=== PATIENT | female | born 1970 | race Caucasian/White ===

== ENCOUNTER 2024-07-31 17:57 | Emergency (ER) | payer MEDICAID ==
[~2024-07-31] VITALS: Ht 160 cm; Wt 63.6 kg
[2024-07-31 18:08] VITALS: BP 137/82; PULSE 71; RESP 16; TEMP 98; O2SAT 98
--- NOTE | 2024-07-31 18:17 | Physician Documentation ---
History of Present Illness ~ Chief Complaint: Arm Pain Stated Complaint: R ARM PAIN Time Seen by MD: 18:40 OK to notify your PCP?: Yes Source: patient Mode of Arrival: POV Exam Limitations: no limitations HPI 53-year-old female presents with right elbow pain for the past couple of weeks. She mentions that she was carrying something heavy and then from into something with that arm and it has been painful ever since. Today she caught her right middle finger in a storage unit and when it pulled it caused increased elbow pain and some swelling in the finger. Good ROM on elbow and finger. Bruise to distal humerus. Medication Reconciliation Allergies: Coded Allergies: No Known Allergies (Unverified , 07/31/24) Review of Systems All Other Systems at this time: Reviewed and Negative Physical Exam Vital Signs: RN Vital Signs have been reviewed: Yes, Temperature: 98.0, Source: Temporal, Heart Rate: 71, Respiratory Rate: 16, BP: 137/82, Pulse Oximetry: 98, Weight: 63.640 Oxygen Flow Rate: 0 Pulse Oximetry Reflects: adequate oxygenation Physical Exam General: Alert, no apparent distress. HEENT: PERRL, EOMI, no injection, moist mucous membranes. Neck: Full range of motion. Respiratory: Lungs clear, no respiratory distress. Chest: No accessory muscle use. Cardiovascular: Regular rate and rhythm, no murmurs. Gastrointestinal: Soft, nontender, nondistended. Bowels sounds present. Extremities: Normal range of motion, no deformity. Neurologic: Oriented x4. Psychiatric: Normal mood and affect. Skin: Normal color, warm and dry. No edema, small healing bruise to distal right humerus Progress Results/Orders Reviewed/noted all lab results: Yes Results/Orders Vital Signs 07/31/24 18:08 Temp 98.0 Pulse 71 Resp 16 B/P (MAP) 137/82 Pulse Ox 98 O2 Flow Rate 0 EKG/XRAY/CT/US/VASC/MRI Bone/Soft Tissue X-Ray (Ext.) : Additional Comment Right elbow x-ray as interpreted by me; no joint effusion, no acute fracture, no soft tissue swelling, no dislocation, or foreign body. Medical Decision Making Findings 53-year-old female with right elbow pain for the past couple of weeks. She had increased pain today after her finger got stuck under door. She has full range motion in all fingers and her arm. She has a small healing bruise to the distal portion of her right humerus. Her x-ray was negative for an acute fracture or dislocation. We discussed the limitation of x-rays and if she is continuing to have symptoms that she may need further imaging or a repeat x-ray in 7-10 days as suggested by the radiologist. I offered to x-ray her fingers as the right middle finger is a little swollen, although she declined at this time. She should follow up with the primary care provider in the next 3 days and return back here for any new or worsening symptoms. She can take Tylenol and/or ibuprofen for pain relief Departure Disposition: 01 HOME / SELF CARE / HOMELESS Impression: Primary Impression: Elbow sprain Condition: Stable Discharge Instructions: Muscle Strain, [id number] Additional Instructions: Please follow up with her primary care provider in the next 3 days and return back here for any new or worsening symptoms. Please take Tylenol and/or ibuprofen for pain relief. You may need repeat imaging or further imaging if this problem persists. Referrals: NO PRIMARY CARE PROVIDER (PCP) Education Educated: Patient Educated regarding: diagnosis, treatment, prognosis, need for follow up Additional Comment Medical Screen Exam This patient recieved a medical screening examination. After reviewing the individual's medical complaints with presenting symptoms and performing an appropriate physical examination, it was determined that no emergency medical condition is present. This individual is also not a women having contractions. Signature Scribe Signature: . Attestation: Scribed for Petrona Spain by Petrona Haile NP . 07/31/24 20:12 PETRONA SPAIN Jul 31, 2024 18:17
--- NOTE | 2024-07-31 19:27 | RADIOLOGY REPORT ---
EXAMINATIONS: 3 views of the right elbow CLINICAL HISTORY: ELBOW PAIN COMPARISON: None Finding and impression: No grossly displaced fractures, dislocations or bony destructive changes are evident on the provided views. No sizable joint effusion. If the patient has continued symptoms clinically suspicious for radiographically occult fracture, fol low-up radiographs could be obtained in 7-10 days time.
== END 2024-07-31 20:31 | disposition home or self-care (01) ==
LOC: ER 17:58
DX: S53.491A Other sprain of right elbow, initial encounter (principal); M25.521 Pain in right elbow; X58.XXXA Exposure to other specified factors, initial encounter; Y93.89 Activity, other specified; Y92.89 Other specified places as the place of occurrence of the external cause; Y99.8 Other external cause status
CPT/HCPCS: 73080; 99283

== ENCOUNTER 2024-08-15 12:20 | Emergency (ER) | payer MEDICAID ==
[~2024-08-15] VITALS: Ht 157.5 cm; Wt 65.5 kg
--- NOTE | 2024-08-15 13:19 | Physician Documentation ---
History of Present Illness ~ Chief Complaint: Sore Throat Stated Complaint: "ORAL SHINGLES" Time Seen by MD: 12:57 HPI 53-year-old female presenting with mouth pain and swelling. Patient states that this has been ongoing for the past 3-4 days. She states that she has noticed some lesions in her mouth that are very painful. It hurts to eat or drink anything. Additionally she states that her jaw and neck feel swollen as a result of this in the pain radiates into her sinuses. She denies any fever, chills or any other associated symptoms. Medication Reconciliation Allergies: Coded Allergies: No Known Allergies (Unverified , 07/31/24) Review of Systems All Other Systems at this time: Reviewed and Negative Physical Exam Vital Signs: Temperature: 97.9, Source: Oral, Heart Rate: 60, Respiratory Rate: 15, BP: 126/83, Pulse Oximetry: 96, Weight: 65.450 Oxygen Flow Rate: 0 Physical Exam I have reviewed the triage vitals. CONST: Well developed and well nourished. In no acute distress HENT: Head Atraumatic. Gums and buccal mucosa exhibit several lesions with central white discoloration EYES: Pupils are equal, round and reactive to light. Normal conjunctiva NECK: Normal range of motion. Supple. CARDIO: Normal rate and regular rhythm. No murmurs, rubs, or gallops. S1, S2. PULM/CHEST: No respiratory distress. Lungs clear to auscultation. No wheeze ABD: Soft and nontender. Nondistended. Bowel sounds normal. No guarding. : Exam deferred MSK: No edema. No deformity. NEURO: Alert and oriented to person, place and time. Moving all extremities SKIN: Warm and dry. PSYCH: Normal mood and affect. Good eye contact. Progress Results/Orders Results/Orders Vital Signs 08/15/24 08/15/24 12:30 12:54 Temp 97.9 Pulse 68 60 Resp 16 15 B/P (MAP) 145/81 126/83 (97) Pulse Ox 97 96 O2 Flow Rate 0 Medical Decision Making Additional Comment 53-year-old female presenting with a viral infection of the mouth. On examined the patient she has several white vesicular lesions on the buccal mucosa as well as the gums. I suspect the patient has a viral infection possibly with HSV one virus versus varicella zoster versus Coxsackie or other enterovirus is versus Sajan bar virus amongst other potential viruses. I advised the patient the treatment for this is typically symptomatic and supportive. Given the potential for a likely herpes virus infection I will prescribe her Valtrex for seven days. Additionally given that her pain is severe I will prescribe her a Medrol Dosepak. I also advised her to drink plenty of fluids including cold fluids to help with soothing of the throat. I can prescribe her some lozenges as well which for further alleviate her symptoms additionally I advised her on Tylenol every 6-8 hours as needed for continued pain. I reassured the patient that the symptoms will resolve. She is to follow up with the primary care physician in the next 2-5 days. Monitor symptoms for improvement and resolution and return to the ED with any acutely worsening symptoms. Departure Disposition: 01 HOME / SELF CARE / HOMELESS Impression: Primary Impression: Viral infection Additional Impression: Herpes virus infection of oral mucosa Condition: Stable Additional Instructions: Take your medications as prescribed. This is a viral infection and should resolve on its own however I will prescribe you some medications that will help. Given the possibility of a potential herpes virus infection I prescribed you Valtrex- please take the medication as prescribed. Additionally I prescribed you a Medrol Dosepak to take for symptomatic treatment. This will significantly help improve her symptoms. Lastly I did also prescribe you some lozenges which will help numb up her mouth and further alleviate your symptoms. I encourage you to drink plenty of cold fluids as well. Monitor her symptoms for improvement and resolution. Follow up with her primary care physician if your symptoms are not improving. Return to the ED with any acutely worsening symptoms. Referrals: NO PRIMARY CARE PROVIDER (PCP) Prescriptions Benzocaine/Menthol (Cepacol Sore Throat Lozenge) 15 Mg-3.6 Mg Lozenge 1 TAB PO Q4H for sore throat for 3 Days, #18 TAB 0 Refills Prov: RONNIE GROSSMAN MD 08/15/24 Methylprednisolone (Medrol Dosepak) 4 Mg Tab.ds.pk 0 PO UD, #21 TAB 0 Refills take 6 Pills Day 1, 5 Pills Day 2, 4 Pills Day 3, 3 Pills Day 4, 2 Pills Day 5 and 1 pill Day 6 Prov: RONNIE GROSSMAN MD 08/15/24 Valacyclovir HCl (Valacyclovir) 1,000 Mg Tablet 2 TAB PO Q12H for 1 Day, #4 TAB 0 Refills Take 2 tablets every 12 hours for 2 doses Prov: RONNIE GROSSMAN MD 08/15/24 Signature Scribe Signature: 1 Attestation: 1 RONNIE GROSSMAN MD Aug 15, 2024 13:19
[2024-08-15] MEDS ORDERED: VALA100031 PO (13:22)
[2024-08-15] MEDS ORDERED: METH4TAB81 PO (13:22)
[2024-08-15] MEDS ORDERED: BENZ1LOZ74 PO (13:27)
[2024-08-15 13:39] VITALS: BP 134/84; PULSE 66; RESP 16; TEMP 98.1; O2SAT 98
== END 2024-08-15 13:41 | disposition home or self-care (01) ==
LOC: ER 12:20
DX: B34.9 Viral infection, unspecified (principal); B00.2 Herpesviral gingivostomatitis and pharyngotonsillitis
CPT/HCPCS: 99283